=== PATIENT | female | born 1995 | race Caucasian/White ===

== ENCOUNTER 2020-02-26 20:52 | Emergency (ER) | payer OTHER ==
[~2020-02-26] VITALS: Ht 157.5 cm; Wt 90.7 kg
[2020-02-26 21:23] VITALS: BP 135/68
[2020-02-26] MEDS ORDERED: LIDOCAINE HCL/MPF 1% 30 ML VIAL IJ ONE (21:33)
[2020-02-26] MEDS ORDERED: TDAP [DIPH/PERTUSSIS/TET] 0.5 ML VIAL IM ONE (21:36)
[2020-02-26] MEDS: TDAP [DIPH/PERTUSSIS/TET] 0.5 ML VIAL IM ONE (21:37)
[2020-02-26] MEDS: LIDOCAINE 2% 20 ML MDV TP ONE (21:46)
== END 2020-02-26 22:16 | disposition home or self-care (01) ==
LOC: ER 21:00
DX: S61.211A Laceration without foreign body of left index finger without damage to nail, initial encounter (principal); Z60.2 Problems related to living alone; W26.0XXA Contact with knife, initial encounter; Y93.89 Activity, other specified; Y92.89 Other specified places as the place of occurrence of the external cause; Y99.8 Other external cause status
CPT/HCPCS: 12001; 90471; 90715; 99283; A6403; J3490

== ENCOUNTER 2020-11-06 07:41 | Emergency (ER) | payer BC, OTHER ==
[~2020-11-06] VITALS: Ht 157.5 cm; Wt 97.5 kg
[2020-11-06 07:49] VITALS: BP 153/87
[2020-11-06] MEDS ORDERED: FAMO-131 PO (08:11)
[2020-11-06] MEDS ORDERED: PRED50TA PO (08:12)
--- NOTE | 2020-11-06 08:18 | NUR ---
Patient discharged to home in stable condition. Written and verbal after care instructions given. Patient verbalizes understanding of instruction.
== END 2020-11-06 08:18 | disposition home or self-care (01) ==
LOC: ER 07:48
DX: T78.40XA Allergy, unspecified, initial encounter (principal); L50.9 Urticaria, unspecified; F41.9 Anxiety disorder, unspecified; Z60.2 Problems related to living alone; Z79.899 Other long term (current) drug therapy; X58.XXXA Exposure to other specified factors, initial encounter